=== PATIENT | male | born 2000 | race Caucasian/White ===

== ENCOUNTER 2025-02-08 11:40 | Emergency (ER) | payer OTHER ==
[~2025-02-08] VITALS: Ht 172.7 cm; Wt 100.0 kg
[2025-02-08] MEDS ORDERED: GEMF600T89 PO (11:53)
[2025-02-08] MEDS ORDERED: HALO100V36 IM ×2 (11:53→12:15)
[2025-02-08] MEDS ORDERED: LEVO25TA9 PO (11:53)
[2025-02-08] MEDS ORDERED: [UNRECOGNIZED DRUG - CODE] PO (11:53)
[2025-02-08] MEDS ORDERED: TRAZ-283 PO (11:53)
[2025-02-08] MEDS ORDERED: TRIH5TAB3 PO (11:53)
[2025-02-08] MEDS ORDERED: DIVA-112 PO ×2 (11:53→12:15)
[2025-02-08] MEDS ORDERED: LITH300T4 PO (11:53)
[2025-02-08] MEDS ORDERED: HALO5TAB2 PO (11:53)
[2025-02-08] MEDS ORDERED: MEDR150V13 IM (12:15)
[2025-02-08] MEDS ORDERED: LITH450T25 PO (12:15)
[2025-02-08 12:16] LABS: BASOPHILS % (AUTO) 0.4 % (0.0-2.0); EOSINOPHILS % (AUTO) 1.9 % (1.0-6.0); HEMATOCRIT 42.4 % (41-53); HEMOGLOBIN 14.6 g/dL (13.5-17.5); LYMPHOCYTES # (AUTO) 2.3 K/uL (1.0-4.8); LYMPHOCYTES % (AUTO) 33.2 % (22.0-44.0); MEAN CORPUSCULAR HEMOGLOBIN 30.5 pg (26.0-34.0); MEAN CORPUSCULAR HGB CONC 34.4 G/dL (31.0-37.0); MEAN CORPUSCULAR VOLUME 89 fL (80-100); MONOCYTES # (AUTO) 0.4 K/uL (0.1-1.0); MONOCYTES % (AUTO) 5.4 % (2.0-9.0); NEUTROPHILS % (AUTO) 59.1 % (40.0-70.0); PLATELET COUNT (AUTO) 428 K/uL (150-450); RED BLOOD CELL COUNT(AUTO) 4.78 MIL/uL (4.50-5.90); RED CELL DISTRIBUTION WIDTH 12.7 % (11.5-14.5); WHITE BLOOD COUNT (AUTO) 6.8 K/uL (4.5-11.0)
[2025-02-08 12:26] LABS: COVID AG,FIA SOURCE NASAL SWAB
[2025-02-08 12:27] LABS: ANION GAP 8 mmol/L (8-16); CALCIUM, TOTAL 9.1 mg/dL (8.8-10.5); CARBON DIOXIDE 27 mmol/L (22-29); CHLORIDE 105 mmol/L (98-107); CREATININE 0.96 mg/dL (0.60-1.30); GLOMERULAR FILTR. RATE CALC > 60 mL/min (>60); GLUCOSE,RANDOM 115 mg/dL (70-110); POTASSIUM 4.3 mmol/L (3.5-5.1); SODIUM SERUM 140 mmol/L (136-145); UREA NITROGEN, BLOOD 15 mg/dL (7-18)
[2025-02-08] MEDS ORDERED: HALO5TAB23 PO (12:58)
[2025-02-08 13:17] LABS: SARS-COV2 (COVID) ANTIGEN,FIA Negative (Negative)
[2025-02-08 14:46] LABS: ALCOHOL, URINE DRUG SCREEN NEGATIVE (NEGATIVE); AMPHET/METH SCREEN,URINE NEGATIVE (NEGATIVE); BARBITURATE SCREEN, URINE NEGATIVE (NEGATIVE); BENZODIAZEPINES SCREEN,URINE NEGATIVE (NEGATIVE); CANNABINOID SCREEN,URINE NEGATIVE (NEGATIVE); COCAINE SCREEN,URINE NEGATIVE (NEGATIVE); METHADONE SCREEN, URINE NEGATIVE (NEGATIVE); OPIATE SCREEN,URINE NEGATIVE (NEGATIVE); PHENCYCLIDINE SCREEN,URINE NEGATIVE (NEGATIVE)
[2025-02-08] MEDS: LORazepam 2 MG TABLET PO ONE (17:17)
[2025-02-08 20:52] VITALS: BP 126/88; PULSE 76; RESP 16; TEMP 98.005280; O2SAT 98
== END 2025-02-08 22:02 | disposition short-term general hospital (02) ==
LOC: EMS 11:40
DX: F69 Unspecified disorder of adult personality and behavior (principal); F20.9 Schizophrenia, unspecified; E03.9 Hypothyroidism, unspecified; E78.00 Pure hypercholesterolemia, unspecified; F12.90 Cannabis use, unspecified, uncomplicated; Z79.899 Other long term (current) drug therapy; Z20.822 Contact with and (suspected) exposure to COVID-19
CPT/HCPCS: 99285; 87426; 80048; 85025; 36415; 80307; G0480

== ENCOUNTER 2025-04-19 18:21 | Emergency (ER) | payer MEDICAID, OTHER ==
[~2025-04-19] VITALS: Ht 165.1 cm; Wt 97.7 kg
[~2025-04-19 18:21] MED LIST: DIVA-112 PO; GEMF600T89 PO; HALO100V36 IM; HALO5TAB23 PO; LEVO25TA9 PO; LITH450T25 PO; MEDR150V13 IM; TRAZ-283 PO; TRIH5TAB3 PO; [UNRECOGNIZED DRUG - CODE] PO
[2025-04-19 19:32] VITALS: TEMP 98.4
[2025-04-19] MEDS ORDERED: LEVO50TA11 PO (19:57)
[2025-04-19] MEDS ORDERED: LITH300T4 PO (19:57)
[2025-04-19 21:40] VITALS: BP 118/81; PULSE 76; RESP 16; O2SAT 99
== END 2025-04-19 23:32 | disposition home or self-care (01) ==
LOC: EMS 18:21
DX: F20.9 Schizophrenia, unspecified (principal); E03.9 Hypothyroidism, unspecified; E78.00 Pure hypercholesterolemia, unspecified; F12.90 Cannabis use, unspecified, uncomplicated; F31.9 Bipolar disorder, unspecified; I10 Essential (primary) hypertension; Z79.899 Other long term (current) drug therapy
CPT/HCPCS: 99284; Z7502; Z7610

== ENCOUNTER → 2025-09-10 | Emergency (ER) | payer OTHER ==
[~2025-09-10] VITALS: Ht 170.2 cm; Wt 59.0 kg
[~2025-09-10] MED LIST changes: -LEVO25TA9 PO; +LEVO50TA11 PO; +LITH300T4 PO; -LITH450T25 PO; -[UNRECOGNIZED DRUG - CODE] PO
[2025-09-10 14:49] VITALS: BP 111/74; PULSE 88; RESP 16; TEMP 98.4; O2SAT 97
== END | disposition still patient (30) ==
LOC: EMS 13:13
DX: R45.1 Restlessness and agitation (principal); E03.9 Hypothyroidism, unspecified; E78.00 Pure hypercholesterolemia, unspecified; F12.90 Cannabis use, unspecified, uncomplicated; F20.9 Schizophrenia, unspecified; Z79.899 Other long term (current) drug therapy
CPT/HCPCS: 99283; Z7502